=== PATIENT | male | born 1960 | race Caucasian/White ===

== ENCOUNTER → 2019-05-05 | Outpatient (CLI) | payer MEDICAID ==
[~2019-05-05] MED LIST: REGADENOSON 0.4 MG/5 ML DISP.SYRIN. IV ONE
--- NOTE | 2019-05-05 10:35 | CARD ---
MR#: [id number] Date of Study: 05/05/2019 Ordering Physician: RAE DESAI, Referring Physician: RAE DESAI Tech: Gladis French RDCS APPROVED REPORT EXAM: Two-dimensional and M-mode echocardiogram with Doppler and color Doppler. Other Information Quality : Good INDICATION Hypertension/HCVD 2D DIMENSIONS RVDd2.9 (2.9-3.5cm)Left Atrium(2D)3.6 (1.6-4.0cm) IVSd1.1 (0.7-1.1cm)Aortic Root(2D)2.8 (2.0-3.7cm) LVDd5.4 (3.9-5.9cm)LVOT Diameter2.1 (1.8-2.4cm) PWd1.1 (0.7-1.1cm)LVDs3.3 (2.5-4.0cm) FS (%) 30.0 %SV94.1 ml LVEF(%)60.0 (>50%) Aortic Valve AoV Peak [place].114.3cm/sAoV VTI23.7cm AO Peak GR.5.2mmHgLVOT Peak [place].82.1cm/s LVOT VTI 18.57cmAO Mean GR.3mmHg PANKAJ (VMAX)2.01jv0GAD (VTI)2.83cm2 Mitral Valve MV E Subcdtep76.1cm/sMV DECEL VSIQ401an MV A Okpvdqby52.7cm/sMV NBK383uf E/A Ratio1.0MVA (PHT)2.15cm2 TDI E/Lateral E'7.9E/Medial E'11.3 Tricuspid Valve TR P. Lcuxdtwr309dq/sRAP MBVGCAGJ4yvCp TR Peak Gr.63rmRvHWHX91tkAt Pulmonary Vein S1 Xiaexdjb38.6cm/sD2 Aijlsopc55.7cm/s LEFT VENTRICLE The left ventricle is normal size. There is normal left ventricular wall thickness. The left ventricu lar systolic function is normal. The Ejection Fraction is 55-60%. There is normal LV segmental wall m otion. Transmitral Doppler flow pattern is Grade I-abnormal relaxation pattern. RIGHT VENTRICLE The right ventricle is normal size. The right ventricular systolic function is normal. ATRIA The left atrium size is normal. The right atrium size is normal. The interatrial septum is intact wit h no evidence for an atrial septal defect or patent foramen ovale as noted on 2-D or Doppler imaging. AORTIC VALVE The aortic valve is calcified but opens well. Doppler and Color Flow revealed no significant aortic r egurgitation. There is no significant aortic valvular stenosis. MITRAL VALVE The mitral valve is normal in structure and function. There is no evidence of mitral valve prolapse. There is no mitral valve stenosis. Doppler and Color Flow revealed no mitral valve regurgitation note d. TRICUSPID VALVE The tricuspid valve is normal in structure and function. Doppler and Color Flow revealed trace tricus pid regurgitation. The PA pressure was estimated at 29 mmHg. There is no tricuspid valve stenosis. PULMONIC VALVE The pulmonic valve is not well visualized. Doppler and Color Flow revealed trace pulmonic valvular re gurgitation. There is no pulmonic valvular stenosis. GREAT VESSELS The aortic root is normal in size. The ascending aorta is normal in size. The IVC is normal in size a nd collapses >50% with inspiration. PERICARDIAL EFFUSION There is no evidence of significant pericardial effusion. Critical Notification Critical Value: No <Conclusion> The left ventricular systolic function is normal. The Ejection Fraction is 55-60%. There is normal LV segmental wall motion. Transmitral Doppler flow pattern is Grade I-abnormal relaxation pattern. Trace tricuspid regurgitation. The PA pressure was estimated at 29 mmHg. There is no evidence of significant pericardial effusion. Signed by : Rae Desai, Electronically Approved : 05/05/2019 10:35:21
--- NOTE | 2019-05-05 13:19 | RAD ---
MR#: [id number] Date of Study: 05/05/2019 Ordering Physician: RAE DESAI, Referring Physician: BALJIT LEE Tech: TEE Wood APPROVED REPORT Test Type: Pharmacological Stress Nurse/Tech: Christine Okeefe R.N. Test Indications: abnormal EKG Cardiac History: htn Medications: See Electronic Medical Record Medical History: See Electronic Medical Record Resting ECG: SR Resting Heart Rate: 68 bpm Resting Blood Pressure: 113/68mmHg Pretest Chest Pain: No chest pain Nurse/Tech Notes S1S2, lungs CTA Consent: The procedure was explained to the patient in lay terms. Informed consent was witnessed. Eder eout was entered into [facility]. History and Stress Test performed by RT Kvng (R) (N) Pharm. Details Pharmacologic stress testing was performed using 0.4mg per 5ml of regadenoson given intravenously ove r 7-10 seconds. Stress Symptoms SOA POST EXERCISE Reason for Termination: Infusion complete Max HR: 98 bpm Max Blood Pressure: 122/60mmHg Blood Pressure response to exercise: Normal blood pressure response during stress. Heart Rate response to exercise: wnl Chest Pain: No. Arrhythmia: No. ST Change: No. INTERPRETATION Stress EKG Conclusion: No evidence of stress induced EKG changes to suggest ischemia. Imaging Protocol IMAGE PROTOCOL: Rest Tc-99m/stress Tc-99m 1 day Rest: Stress: Viability: Radiopharm.Tc99m CsaugleqyHl46h Sestamibi Dose10.5mCi 32mCi Duration 15min. 10min. Img Date 05/05/2019 05/05/2019 Inj-Img Hyfl40zqh. 60min. Rest Admin Site:IV - Right HandAdministrator:EUNICE Johnson ARRT (R)(N) Stress Admin Site: IV - Right HandAdministrator: EUNICE Johnson, ARRT (R)(N) STRESS DATA End Diast. Vol.100.0mlAv. Heart Rate77.0bpm End Syst. Vol.25.0mlCO Index BSA0.0L/min Myocardial Ojbv988.0gEject. Dctibivj08.0% Stress Rates Pk. Fill Rate3.18EDV/secLVtime Pk. Fill 95.99msec Pk. Empty Rate4.37ESV/secLVtime Pk. Aonkl797.01msec /3 Pk. Fill2.17EDV/sec Stress Scores Regional WT1.00Summed WT5.00 Regional WM0.00Summed WM0.00 The rest and stress images show normal perfusion, normal contraction and thickening. LV Perf. Quant 17 Seg. SSS1.00 17 Seg. SRS0.00 17 Seg. SDS1.00 Stress Defect Extent (% LAD)0.00Rest Defect Extent (% LAD)0.00Rev. Defect Extent (% LAD)0.00 Stress Defect Extent (% LCX) 11.30Rest Defect Extent (% LCX)10.00Rev. Defect Extent (% LCX)0.00 Stress Defect Extent (% RCA)0.00Rest Defect Extent (% RCA)0.00Rev. Defect Extent (% RCA)0.00 Stress Defect Extent (% KAMRON)2.60Rest Defect Extent (% KAMRON)1.70Rev. Defect Extent (% KAMRON)0.00 Other Information Quality:Good Risk Assessment: Low Risk Conclusion 1. No evidence of EKG changes with stress testing. 2. Normal perfusion at stress/rest. 3. Low risk study. 4. EF > 60%. Signed by : Daryl Apple, Electronically Approved : 05/05/2019 13:19:24
== END | disposition home or self-care (01) ==
LOC: NM 09:28
PROVIDERS: ATTEND Internal Medicine Cardiovascular Disease
DX: I35.8 Other nonrheumatic aortic valve disorders (principal); I11.9 Hypertensive heart disease without heart failure
CPT/HCPCS: 78452; 93017; 93306; A9500; J2785

== ENCOUNTER → 2021-07-06 | Outpatient (CLI) | payer MEDICARE, MEDICAID ==
--- NOTE | 2021-07-07 10:22 | CARD ---
MR#: [id number] Date of Study: 07/06/2021 Ordering Physician: RAE DESAI, Referring Physician: RAE DESAI Tech: Ginna Pelaez STEVIE APPROVED REPORT EXAM: Two-dimensional and M-mode echocardiogram with Doppler and color Doppler. Other Information Quality : GoodHR: 81bpm Rhythm : NSR INDICATION Hypertension/HCVD RISK FACTORS Hypertension Obesity 2D DIMENSIONS RVDd3.4 (2.9-3.5cm)Left Atrium(2D)4.2 (1.6-4.0cm) IVSd1.2 (0.7-1.1cm)Aortic Root(2D)3.7 (2.0-3.7cm) LVDd5.6 (3.9-5.9cm)LVOT Diameter2.4 (1.8-2.4cm) PWd1.1 (0.7-1.1cm)LVDs4.0 (2.5-4.0cm) FS (%) 28.7 %SV83.2 ml Aortic Valve AoV Peak [place].103.9cm/sAoV VTI22.5cm AO Peak GR.4.3mmHgLVOT Peak [place].81.1cm/s AO Mean GR.2mmHgAVA (VMAX)3.48cm2 Mitral Valve MV E Dvbdyksg45.7cm/sMV DECEL TVMI717mr MV A Lmgrybky33.1cm/sE/A Ratio1.0 Pulmonary Valve PV Peak Pbcbiwvy61.7cm/s Tricuspid Valve TR P. Liyoltey795rt/sTR Peak Gr.19mmHg LEFT VENTRICLE The left ventricle is normal size. There is borderline concentric left ventricular hypertrophy. The l eft ventricular systolic function is normal and the ejection fraction is within normal range. LV eje ction fraction of 50 to 55%. There is normal LV segmental wall motion. The left ventricular diastolic function and filling is normal for age. RIGHT VENTRICLE The right ventricle is normal size. There is normal right ventricular wall thickness. Systolic functi on is borderline. ATRIA The left atrium size is normal. The right atrium size is normal. The interatrial septum is intact wit h no evidence for an atrial septal defect or patent foramen ovale as noted on 2-D or Doppler imaging. AORTIC VALVE The aortic valve is normal in structure and function. Doppler and Color Flow revealed no significant aortic regurgitation. There is no significant aortic valvular stenosis. MITRAL VALVE The mitral valve is normal in structure and function. There is no evidence of mitral valve prolapse. There is no mitral valve stenosis. Doppler and Color-flow revealed trace to mild mitral regurgitation . TRICUSPID VALVE The tricuspid valve is normal in structure and function. Doppler and Color Flow revealed trace tricus pid regurgitation. Estimated PAP 25 mmHg. There is no tricuspid valve stenosis. PULMONIC VALVE The pulmonary valve is normal in structure and function. Doppler and Color Flow revealed mild pulmoni c valvular regurgitation. GREAT VESSELS The aortic root is borderline enlarged. The ascending aorta is mildly dilated. The IVC is normal in s ize and collapses >50% with inspiration. PERICARDIAL EFFUSION There is no evidence of significant pericardial effusion. Critical Notification Critical Value: No <Conclusion> The left ventricle is normal size. The left ventricular systolic function is normal and the ejection fraction is within normal range. LV ejection fraction of 50 to 55%. There is borderline concentric left ventricular hypertrophy. Doppler and Color Flow revealed no significant aortic regurgitation. There is no significant aortic valvular stenosis. Doppler and Color-flow revealed trace to mild mitral regurgitation. Doppler and Color Flow revealed trace tricuspid regurgitation. Estimated PAP 25 mmHg. The aortic root is borderline enlarged. Signed by : Tima Gibson MD Electronically Approved : 07/07/2021 10:21:56
== END ==
LOC: ECHO 09:38
PROVIDERS: ATTEND Internal Medicine Cardiovascular Disease
DX: I34.0 Nonrheumatic mitral (valve) insufficiency (principal); I37.1 Nonrheumatic pulmonary valve insufficiency; I10 Essential (primary) hypertension
CPT/HCPCS: 93306; C8929